=== PATIENT | female | born 1990 | race Caucasian/White ===

== ENCOUNTER 2017-11-03 08:57 | Emergency (ER) | payer MEDICAID ==
--- NOTE | 2017-11-03 11:23 | EDM.PDOC ---
ED HPI GENERAL MEDICAL PROBLEM - General Chief Complaint: Upper Extremity Injury/Pain Stated Complaint: WRIST PAIN Time Seen by Provider: 11/03/17 09:05 Source of Information: Reports: Patient History Limitations: Reports: No Limitations - History of Present Illness INITIAL COMMENTS - FREE TEXT/NARRATIVE: Pt. presents to ER with complaints of acute on chronic R wrist pain. Pt. states that she fractured her scaphoid on 2016, and had surgery to repair it in 2017. Pt. states that she was staying at [facility] in [place], [place] over the weekend and fell, injuring her R wrist again. She does not recall if she fell onto an outstretched hand and specifically how she landed. She states that she did no stike her hand or injure herself elsewhere. Denies any paresthesia to distal portion of the extremity. She complains of severe "11 out of 10" pain to the wrist. She claims she stopped here in [place] on her way back to [place]. Duration: Chronic, Constant Location: Reports: Upper Extremity, Right Quality: Reports: Sharp, Stabbing, Throbbing Severity: Severe Improves with: Reports: Rest Worsens with: Reports: Movement Right Wrist Pain Score (Numeric/FACES): 10 - Related Data Allergies Allergy/AdvReac Type Severity Reaction Status Date / Time No Known Allergies Allergy Verified 11/03/17 10:25 Home Meds: Home Meds . [Unable to Verify Home Med List] 11/03/17 [History] Review of Systems - Review of Systems Review Of Systems: See Below Constitutional: Reports: No Symptoms Musculoskeletal: Reports: Other (R wrist pain) Skin: Reports: No Symptoms Neurological: Reports: No Symptoms ED EXAM, GENERAL - Physical Exam Exam: See Below General Appearance: Alert, WD/WN, No Apparent Distress Peripheral Pulses: 4+: Radial (R) Extremities: Normal Inspection, Normal Capillary Refill, Other (R wrist is exquisitely tender. She will not allow ROM exam due to the pain. No ecchymosis or edema noted. No obvious crepitus noted. ) Course - Vital Signs Last Recorded V/S: Last Vital Signs Temp 36.1 C 11/03/17 09:05 Pulse 120 H 11/03/17 09:05 Resp 16 11/03/17 09:05 BP 142/68 H 11/03/17 09:05 Pulse Ox 96 11/03/17 09:05 - Orders/Labs/Meds Orders: Active Orders 24 hr Category Date Time Status Wrist Comp Min 3V Rt [CR] Stat Exams 11/03/17 09:59 Taken - Radiology Interpretation Free Text/Narrative:: Post surgical changes and hardware noted. No new fracture or dislocation noted. Departure - Departure Time of Disposition: 10:30 Disposition: Home, Self-Care 01 Clinical Impression: Scaphoid fracture of wrist - Discharge Information Instructions: Wrist Pain, Adult Referrals: PCP,Not In Area [Primary Care Provider] - Additional Instructions: Follow-up with orthopedic surgery [facility]. - My Orders Last 24 Hours: My Active Orders 11/03/17 09:59 Wrist Comp Min 3V Rt [CR] Stat - Assessment/Plan Last 24 Hours: My Active Orders 11/03/17 09:59 Wrist Comp Min 3V Rt [CR] Stat Plan: Pt. became upset when she was offered an injection of toradol, stating that it won't help with the pain. She then became belligerent, stating that she wanted to leave, slamming the door to the exam room. She left before being fully discharged.
== END 2017-11-03 10:30 | disposition home or self-care (01) ==
LOC: VM.ED 08:57
DX: S62.001D Unspecified fracture of navicular [scaphoid] bone of right wrist, subsequent encounter for fracture with routine healing (principal); W19.XXXD Unspecified fall, subsequent encounter
CPT/HCPCS: 73110-RT; 99283